=== PATIENT | male | born 1985 | race African-American/Black ===

== ENCOUNTER 2022-05-25 08:32 | Day surgery (SDC) | payer OTHER ==
[2022-05-25] VITALS (8 sets, daily range): BP systolic 129–166; BP diastolic 74–99
[~2022-05-25] VITALS: Ht 195.6 cm; Wt 126.0 kg
[~2022-05-25 08:32] MED LIST: ACET650T11 PO; ADV50250 IH; CALC625T62 PO; CAPS42.514 TOP; LEVA15HF4 INH; OMEP-271 PO; TRIA10.8 BOTHNARES; ceFAZolin inj. 3,000 MG in normal saline 100ml IV soln 100 ML IV ONE; famotidine 20mg tablet PO ONE; ringers solution, lacted 1,000 ML IV SCH
[2022-05-25] MEDS ORDERED: epiNEPHrine 1 mg/ml inj ONE (09:56)
[2022-05-25] MEDS ORDERED: gelatin sponge, absorbable (Gelfoam 100) sponge TP ONE (09:56)
[2022-05-25] MEDS ORDERED: ROPIVAcaine 0.5% (5mg/ml) 30ml vial ONE ×2 (09:56→13:08)
[2022-05-25] MEDS ORDERED: Thrombin (Bovine) 5,000 unit vial TP ONE (09:57)
[2022-05-25] MEDS ORDERED: midazolam 1 mg/ML 2ml injection ONE (12:46)
[2022-05-25] MEDS ORDERED: fentaNYL/PF 50MCG/1 ML 2ML syringe ONE ×2 (12:46→13:06)
[2022-05-25] MEDS ORDERED: sevoflurane 250ml liquid IH ONE (12:49)
[2022-05-25] MEDS ORDERED: ondansetron/PF 4mg/2ml inj IV PRN (13:25)
[2022-05-25] MEDS ORDERED: proCHLORperazine 10 MG/2 ml inj IV PRN (13:25)
[2022-05-25] MEDS ORDERED: ringers solution, lacted 1,000 ML IV SCH (13:25)
[2022-05-25] MEDS ORDERED: morphine 2 MG/ML inj. syringe IV PRN (13:25)
[2022-05-25] MEDS ORDERED: morphine 4 MG/ML inj SYRINge IV PRN (13:25)
[2022-05-25] MEDS ORDERED: meperidine/PF 25mg/ml syringe IV PRN ×3 (13:25)
[2022-05-25] MEDS ORDERED: acetaminophen 1,000mg/100ml IV 100 ML IV ONE (14:00)
[2022-05-25] MEDS ORDERED: ePHEDrine 50MG/ML INJ. ONE (14:00)
[2022-05-25] MEDS ORDERED: dexamethasone sod phosphate 4mg/ml inj. ONE (14:00)
[2022-05-25] MEDS ORDERED: propofol inj 20 ML IV ONE (14:00)
[2022-05-25] MEDS ORDERED: LIDOcaine 1%/PF 5ML 10 MG/ML VIAL ONE (14:00)
[2022-05-25] MEDS ORDERED: ondansetron/PF 4mg/2ml inj ONE (14:00)
--- NOTE | 2022-05-25 14:38 | NUR ---
Received from OR via [facility], accompanied by Anesthesiologist and report given by [facility] Anesthesiologist. PATIENT WAKING UP, NO S/S OF PAIN, V/S WNL, SCD ON, 20G TO LAC, drsg to LEFT KNEE C/D/I with KNEE IMMOBILIZER. 2 OFFICERS FROM DOC ARE AT BEDSIDE. Addendum: 05/25/22 at 1502 by Landon Lennon RN Amended: Links added.
--- NOTE | 2022-05-25 15:38 | NUR ---
ALL DISCHARGE CRITERIA HAS BEEN MET. VSS, PAIN AT A TOLERABLE LEVEL, VOIDING AND ABLE TO SAFELY AMBULATE AND TRANSFER SELF. IV TAKEN OUT WITHOUT ANY COMPLICATIONS. ALL DISCHARGE INSTRUCTIONS COVERED WITH PATIENT AND ALL QUESTIONS ANSWERED. PATIENT TAKEN OUT VIA WHEELCHAIR WITH ALL BELONGINGS TO PERSONAL VEHICLE WHERE CUSTODIAL OFFICERS (DINA) DROVE PATIENT HOME. Addendum: 05/25/22 at 1553 by Landon Lennon RN Amended: Links added.
== END 2022-05-25 15:38 ==
LOC: PAS 08:32 → EEVIPCON 12:00 → EDSTATUS 12:00 → PAS 15:38
PROVIDERS: ATTEND Orthopaedic Surgery
DX: S83.282A Other tear of lateral meniscus, current injury, left knee, initial encounter (principal); M17.12 Unilateral primary osteoarthritis, left knee; M65.862 Other synovitis and tenosynovitis, left lower leg; S83.512A Sprain of anterior cruciate ligament of left knee, initial encounter; M23.42 Loose body in knee, left knee; M25.762 Osteophyte, left knee; X58.XXXA Exposure to other specified factors, initial encounter; Y93.89 Activity, other specified; Y92.89 Other specified places as the place of occurrence of the external cause; Y99.8 Other external cause status; Z79.899 Other long term (current) drug therapy; G89.18 Other acute postprocedural pain; Z98.890 Other specified postprocedural states
CPT/HCPCS: 29881; 64447; 76942; 82948; J0131; J0171; J0690; J1100; J2250; J2405; J2704; J2795; J3010; J3490; J7030; J7120; Z7506; Z7508; Z7512; A4215; A4618; A6449; A7000